=== PATIENT | male | born 1960 | race Caucasian/White ===

== ENCOUNTER 2021-05-16 12:53 | Emergency (ER) | payer OTHER ==
[~2021-05-16] VITALS: Ht 175.3 cm; Wt 133.8 kg
[2021-05-16 13:55] VITALS: BP 161/111
== END 2021-05-16 15:17 | disposition home or self-care (01) ==
LOC: M.ERS 12:53
DX: U07.1 COVID-19 (principal); E78.5 Hyperlipidemia, unspecified; Z90.89 Acquired absence of other organs; Z96.653 Presence of artificial knee joint, bilateral; Z88.1 Allergy status to other antibiotic agents; Z88.0 Allergy status to penicillin